=== PATIENT | female | born 1960 | race Caucasian/White ===

== ENCOUNTER 2017-06-10 13:02 | Emergency (ER) | payer OTHER ==
[~2017-06-10] VITALS: Ht 177.8 cm; Wt 103.5 kg
[2017-06-10 13:13] VITALS: TEMP 37.2; Ht 177.8 cm; Wt 103.5 kg
[2017-06-10] MEDS ORDERED: HYDROCODONE/HOMATROPINE SYRUP 5MG/1.5MG 5ML UDP PO STA (13:31)
[2017-06-10] MEDS ORDERED: SODIUM CHLORIDE 0.9% 1000ML 1,000 ML IV STA (13:31)
[2017-06-10] MEDS ORDERED: BENZONATATE 100MG CAP PO ONE (13:45)
[2017-06-10 13:57] LABS: BASO % 0.7 %; BASO ABS # 0.04 K/uL (0-0.2); COMPLETE YES; EOS % 4.2 %; HEMATOCRIT 39.6 % (37-47); IG% 0.2 %; LYMPH % 21.7 %; LYMPH ABS # 1.33 K/uL (1.2-3.4); MEAN CELL VOLUME 86.7 fL (80-100); MEAN CORPUSCULAR HEMOGLOBIN 28.9 pg (25-34); MEAN CORPUSCULAR HGB CONC 33.3 g/dl (32-36); MEAN PLATELET VOLUME 9.3 fL (7.4-10.4); NEUT % 66.2 %; PLATELET COUNT 258 K/uL (130-400); RED BLOOD COUNT 4.57 M/uL (4.2-5.4); WHITE BLOOD COUNT 6.12 K/uL (4.8-10.8)
[2017-06-10 14:13] LABS: BUN/CREATININE RATIO 13.3 (10-20); CALCIUM 9.2 mg/dl (8.5-10.1); CREATININE 0.75 mg/dl (0.60-1.20); POTASSIUM 3.8 mmol/L (3.5-5.1)
--- NOTE | 2017-06-10 14:20 | DIAGNOSTIC IMAGING REPORT ---
RIGHT RIBS UNILATERAL WITH PA CHEST CLINICAL HISTORY: Right rib pain. Cough. COMPARISON STUDY: None FINDINGS: The erect chest reveals no pneumothorax. There are right lower lobe airspace opacities suspicious for a pneumonia. Films subsequent to treatment are recommended in follow-up. There is a calcified left lower lobe granuloma. No right-sided rib fractures are visualized. IMPRESSION: 1. No evidence of pneumothorax. No right-sided rib fractures identified 2. Right lower lobe airspace opacities consistent with pneumonia. Films subsequent to treatment are recommended in follow-up Electronically signed by: Ulisses Zhong M.D. 06/10/2017 2:19 PM Dictated Date/Time: 06/10/2017 2:17 PM
[2017-06-10] MEDS ORDERED: LEVAQUIN 750MG / 150ML D5W IV STA (14:32)
[2017-06-10] MEDS ORDERED: BENZ100C18 PO (14:41)
[2017-06-10] MEDS ORDERED: LEVO1TAB35 PO (14:41)
[2017-06-10] MEDS ORDERED: LEVOFLOXACIN 250 MG TAB ONE (14:58)
[2017-06-10 15:03] VITALS: BP 143/73; PULSE 74; O2SAT 94
--- NOTE | 2017-06-10 19:03 | EMERGENCY ROOM VISIT NOTE ---
History Report prepared by Floydibmarcie: Cecil Chris Under the Supervision of: Dr. Daniel Park D.O. First contact with patient: 13:17 Chief Complaint: COUGH Stated Complaint: SEVERE COUGH WITH PAIN, TINGLING NUMBNESS IN ARMS Nursing Triage Summary: cough "Im coughing so hard I think I cracked a rib on right side" yellow sputum unknown fever bilateral arm numbness bilateral ear swelling History of Present Illness The patient is a 57 year old female who presents to the Emergency Room with complaints of persistent coughing beginning a week ago. She also complains of bilateral ear pressure. The patient states that her cough initially produced a green sputum, but is now producing a yellow sputum. She states that she had a sore throat prior to her cough which has since resolved. She also complains of chest pain feels that she may have cracked a rib on the right side from coughing. The patient states that her chest pain began suddenly while coughing, and is worsened with laying down. She states that she experienced an episode of numbness and tingling in her arms yesterday after coughing. She states that her hand went into a locked position briefly after the tingling occurred. Pt denies headache, change in vision, fevers, shortness of breath, nausea, vomiting, diarrhea, pain with urination, and melena. Source of History: patient Onset: 1 week ago Quality: other (cough) Timing: other (persistent) Associated Symptoms: + chest pain (right side after coughing), No fevers, No headache, No SOB, No nausea, No vomiting, No diarrhea, No urinary symptoms Note: The patient also complains of bilateral ear pressure and an episode of bilateral arm numbness and tingling followed by a hand spasm occurring yesterday. Review of Systems See HPI for pertinent positives & negatives. A total of 10 systems reviewed and were otherwise negative. Past Medical & Surgical Medical Problems: (1) No Known Active Medical Problems (2) Sepsis Surgical Problems: (1) H/O thyroidectomy (2) S/P cholecystectomy Family History No pertinent family history stated. Social History Smoking Status: Former Smoker Housing Status: lives with family Occupation Status: employed Current/Historical Medications Scheduled Benzonatate (Tessalon Perles), 100 MG PO TID Levofloxacin (Levaquin), 750 MG PO QD@08 Allergies Coded Allergies: Penicillins (Unverified Allergy, Unknown, "BLACKED OUT", 06/10/17) Physical Exam Vital Signs Date Time Temp Pulse Resp B/P (MAP) Pulse Ox O2 Delivery O2 Flow Rate FiO2 06/10/17 15:03 74 18 143/73 94 Room Air 06/10/17 14:40 74 139/76 97 Room Air 06/10/17 13:13 37.2 89 20 157/71 92 Room Air Physical Exam GENERAL: Sitting up on edge of bed, talking in full sentences, dry cough EYE EXAM: normal conjunctiva. OROPHARYNX: no exudate, no erythema, lips, buccal mucosa, and tongue normal and mucous membranes are moist NECK: supple, no nuchal rigidity, no adenopathy, non-tender LUNGS: Clear to auscultation. Normal chest wall mechanics HEART: no murmurs, S1 normal and S2 normal CHEST: acute reproducible right chest wall tenderness ABDOMEN: abdomen soft, non-tender, normo-active bowel sounds, no masses, no rebound or guarding. BACK: Back is symmetrical on inspection and there is no deformity, no midline tenderness, no CVA tenderness. SKIN: no rashes and no bruising UPPER EXTREMITIES: upper extremities are grossly normal. LOWER EXTREMITIES: No pitting edema. NEURO EXAM: Normal sensorium, cranial nerves II-XII grossly intact, normal speech, no gross weakness of arms, no gross weakness of legs. Medical Decision & Procedures ER Provider Diagnostic Interpretation: Radiology results as stated below per my review and the radiologist's interpretation: RIGHT RIBS UNILATERAL WITH PA CHEST FINDINGS: The erect chest reveals no pneumothorax. There are right lower lobe airspace opacities suspicious for a pneumonia. Films subsequent to treatment are recommended in follow-up. There is a calcified left lower lobe granuloma. No right-sided rib fractures are visualized. IMPRESSION: 1. No evidence of pneumothorax. No right-sided rib fractures identified 2. Right lower lobe airspace opacities consistent with pneumonia. Films subsequent to treatment are recommended in follow-up Electronically signed by: Ulisses Zhong M.D. Laboratory Results 06/10/17 13:40 Red Blood Count 4.57, Mean Corpuscular Volume 86.7, Mean Corpuscular Hemoglobin 28.9, Mean Corpuscular Hemoglobin Concent 33.3, Mean Platelet Volume 9.3, Neutrophils (%) (Auto) 66.2, Lymphocytes (%) (Auto) 21.7, Monocytes (%) (Auto) 7.0, Eosinophils (%) (Auto) 4.2, Basophils (%) (Auto) 0.7, Neutrophils # (Auto) 4.05, Lymphocytes # (Auto) 1.33, Monocytes # (Auto) 0.43, Eosinophils # (Auto) 0.26, Basophils # (Auto) 0.04 06/10/17 13:40 Test 06/10/17 13:40 White Blood Count 6.12 K/uL (4.8-10.8) Red Blood Count 4.57 M/uL (4.2-5.4) Hemoglobin 13.2 g/dL (12.0-16.0) Hematocrit 39.6 % (37-47) Mean Corpuscular Volume 86.7 fL (80-100) Mean Corpuscular Hemoglobin 28.9 pg (25-34) Mean Corpuscular Hemoglobin Concent 33.3 g/dl (32-36) Platelet Count 258 K/uL (130-400) Mean Platelet Volume 9.3 fL (7.4-10.4) Neutrophils (%) (Auto) 66.2 % Lymphocytes (%) (Auto) 21.7 % Monocytes (%) (Auto) 7.0 % Eosinophils (%) (Auto) 4.2 % Basophils (%) (Auto) 0.7 % Neutrophils # (Auto) 4.05 K/uL (1.4-6.5) Lymphocytes # (Auto) 1.33 K/uL (1.2-3.4) Monocytes # (Auto) 0.43 K/uL (0.11-0.59) Eosinophils # (Auto) 0.26 K/uL (0-0.5) Basophils # (Auto) 0.04 K/uL (0-0.2) RDW Standard Deviation 42.6 fL (36.4-46.3) RDW Coefficient of Variation 13.3 % (11.5-14.5) Immature Granulocyte % (Auto) 0.2 % Immature Granulocyte # (Auto) 0.01 K/uL (0.00-0.02) Anion Gap 9.0 mmol/L (3-11) Est Creatinine Clear Calc Drug Dose 105.2 ml/min Estimated GFR () 101.1 Estimated GFR (Non- 87.2 BUN/Creatinine Ratio 13.3 (10-20) Calcium Level 9.2 mg/dl (8.5-10.1) Laboratory results per my review. Medications Administered Medications (Trade) Dose Ordered Sig/Kiera Route Start Time Stop Time Status Last Admin Dose Admin Hydrocodone Bit/ Homatropine Methylb (Hycodan Syrup) 5 ml NOW STAT PO 06/10/17 13:31 06/10/17 13:33 DC 06/10/17 13:52 5 ML Benzonatate (Tessalon Perles Cap) 100 mg NOW ONCE PO 06/10/17 13:45 06/10/17 13:46 DC 06/10/17 13:52 100 MG Sodium Chloride 1,000 ml @ 999 mls/hr Q1H1M STAT IV 06/10/17 13:31 06/10/17 14:31 DC 06/10/17 13:53 999 MLS/HR Levofloxacin (Levaquin Tab) 750 mg STK-MED ONCE .ROUTE 06/10/17 14:58 06/10/17 14:59 DC 06/10/17 15:03 750 MG ECG Indication: chest pain Rate (beats per minute): 80 Rhythm: sinus rhythm Findings: no ectopy, other (Normal axis) ED Course ED COURSE: Vital signs were reviewed and showed hypertension. The patients medical record was reviewed The above diagnostic studies were performed and reviewed. ED treatments and interventions as stated above. 1323: The patient was evaluated in room A10. A complete history and physical examination was performed. 1331: Ordered Sodium Chloride 1000 ml @ 999 mls/hr IV, Hycodan Syrup 5 mL PO. 1345: Ordered Tessalon Perles Cap 100 mg PO. 1432: Ordered Levaquin / D5W 750 mg PO. 1438: Upon reevaluation, the patient is resting comfortably. I discussed my findings with the patient and she understands and agrees with the treatment plan. Based on the patients age, coexisting illnesses, exam and lab findings the decision to treat as an outpatient was made. The patient remained stable while under my care. The patient appeared well at the time of discharge. Medical Decision Differential diagnoses includes but is not limited to acute coronary syndrome, myocardial infarction, pericarditis, pulmonary embolus, aortic dissection, pneumonia, pneumothorax, musculoskeletal, shingles, esophageal. Patient is a 57-year-old since the ER for cough associated with runny nose and sore throat which has been present for the past week. She notes her sputum has turned from green to yellow. She has been feeling more tired. She does admit to a pleuritic pain on the right which has started 2 days ago following a severe coughing fit. No fevers. Vitals are unremarkable. Labs including CBC and BMP were unremarkable. Chest x-ray supports a pneumonia which consistent with her symptoms of an upper respiratory infection. On exam she does have reproducible anterior chest wall pain which I favors musculoskeletal second very to coughing. Patient was given a dose of Levaquin and discharged follow- up with her PCP along with Molly Eubanks. She was instructed not to drive, work, operate heavy machinery for the remainder of the day. Discussed with Pt concerning signs and symptoms to watch out for. Pt was instructed to follow up with their PCP and discussed with the patient their option to return to the ED at anytime for persistent or worsening symptoms. The appropriate anticipatory guidance and out-patient management, including indications for return to the emergency department, were explained at length to the patient and understood. Medication Reconcilliation Current Medication List: was personally reviewed by me Blood Pressure Screening Patient's blood pressure: Elevated blood pressure Blood pressure disposition: Elevated BP felt to be situational Impression Primary Impression: Pneumonia Scribe Attestation The scribe's documentation has been prepared under my direction and personally reviewed by me in its entirety. I confirm that the note above accurately reflects all work, treatment, procedures, and medical decision making performed by me. Departure Information Dispostion Home / Self-Care Prescriptions Levofloxacin (Levaquin) 750 Mg Tab 750 MG PO QD@08, #9 TAB Prov: Daniel Park, DO 06/10/17 Benzonatate (TESSALON PERLES) 100 Mg Cap 100 MG PO TID, #30 CAP Prov: Daniel Park, DO 06/10/17 Referrals No Doctor, Assigned (PCP) Forms HOME CARE DOCUMENTATION FORM, IMPORTANT VISIT INFORMATION Patient Instructions My [facility], Pneumonia (Bacterial) - [facility] Additional Instructions Please follow up with your primary care doctor or if you are a student, [facility] with in the next 24 hours. Any worsening of your symptoms, please return to the ED immediately. This includes any fevers greater than 100.4, worsening pain, chest pain, shortness breath, persistent nausea, vomiting, unable to eat or drink, or any other concerning signs or symptoms from your standpoint. You were given medications during this visit that will inhibit your ability to drive, operate machinery and work. Please do NOT drive, operate machinery, drink alcohol or work for the next 12hrs. You were found to have a blood pressure greater than 120 systolic over 90 diastolic. Due to the new Medicare guidelines, we are now recommending that you follow up with your primary care doctor in regards to this elevated blood pressure. Problem Qualifiers Primary Impression: Pneumonia Pneumonia type: due to unspecified organism Laterality: unspecified laterality Lung location: unspecified part of lung Qualified Codes: J18.9 - Pneumonia, unspecified organism
[2017-07-03] MEDS ORDERED: CYNI1000 IM (10:05)
[2017-07-03] MEDS ORDERED: ASPEC81 PO (10:05)
== END 2017-06-10 15:17 | disposition home or self-care (01) ==
LOC: C.EDB 13:04 → C.EDA 15:17
DX: J18.9 Pneumonia, unspecified organism (principal); Z87.891 Personal history of nicotine dependence

== ENCOUNTER 2017-07-01 10:54 | Emergency (ER) | payer OTHER ==
[~2017-07-01] VITALS: Ht 177.8 cm; Wt 101.6 kg
[~2017-07-01 10:54] MED LIST: LEVO1TAB35 PO
[2017-07-01] MEDS ORDERED: SODIUM CHLORIDE 0.9% 1000ML 1,000 ML IV SCH (11:07)
[2017-07-01 11:29] LABS: MEAN CORPUSCULAR HGB CONC 33.4 g/dl (32-36); MEAN PLATELET VOLUME 9.7 fL (7.4-10.4); PLATELET COUNT 257 K/uL (130-400)
--- NOTE | 2017-07-01 11:41 | DIAGNOSTIC IMAGING REPORT ---
HEAD CT NONCONTRAST CT DOSE: 537.48 mGy.cm HISTORY: Stroke symptoms. Dizziness. TECHNIQUE: Multiaxial CT images of the head were performed without the use of intravenous contrast. Automated exposure control was utilized for this study. A dose lowering technique was utilized adhering to the principles of ALARA. Comparison: None. Findings: The paranasal sinuses and mastoid air cells are clear. The calvarium and skull base are intact. There is no mass, hematoma, midline shift, acute infarct. White matter hypodensity is nonspecific but suggestive of microvascular ischemic change. The ventricles and sulci demonstrate mild age-related involutional changes. Impression: No acute intracranial abnormality. Electronically signed by: Ki Green M.D. 07/01/2017 11:40 AM Dictated Date/Time: 07/01/2017 11:38 AM
[2017-07-01 11:48] LABS: URINE APPEARANCE CLEAR (CLEAR); URINE BILIRUBIN NEG (NEG); URINE COLOR YELLOW; URINE NITRITE NEG (NEG); URINE PH 6.5 (4.5-7.5); URINE SPECIFIC GRAVITY 1.013 (1.000-1.030); UROBILINOGEN NEG (NEG); ZZUR CULT IF INDIC CLEAN CATCH NO
--- NOTE | 2017-07-01 11:48 | EMERGENCY ROOM VISIT NOTE ---
History Report prepared by Sandi: Toña Lopez Under the Supervision of: Dr. Sharon Epps M.D. First contact with patient: 11:05 Chief Complaint: STROKE SYMPTOMS Stated Complaint: SWELLING IN LEGS, CALF IF HARD, DIZZY, VISION PROB History of Present Illness The patient is a 57 year old female who presents to the Emergency Room with complaints of persistent stroke symptoms that began around 0800 this morning. The patient states that this morning she woke up out of bed at 0800 and dropped her phone. She states that she bent over to flower picker her phone and then her vision blurred out. The patient states that she has had difficulty ambulating and notes that she lost her urine while walking to the bathroom, noting that she could not make it to the bathroom in time. She denies any recent fall or head trauma. The patient's daughter states that the patient's speech pattern appears off. 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 She states that her left leg is worse than her right. The patient denies any history of a prior stroke. She states that she stopped smoking one year ago. The patient denies any recent illnesses. Source of History: patient Onset: around 0800 this morning Position: other (global) Quality: other (stroke symptoms) Timing: other (persistent) Note: Associated Symptoms: vision blurred out, difficulty ambulating, bilateral leg swelling Review of Systems See HPI for pertinent positives & negatives. A total of 10 systems reviewed and were otherwise negative. Past Medical & Surgical Medical Problems: (1) No Known Active Medical Problems (2) Pre-syncope (3) Sepsis Surgical Problems: (1) H/O thyroidectomy (2) S/P cholecystectomy Family History Diabetes mellitus Gallbladder disease Heart disease Hypertension Lung disease Seizures Social History Smoking Status: Former Smoker Smokeless Tobacco Use: No Alcohol Use: occasionally Marital Status: Housing Status: lives with family Occupation Status: employed Current/Historical Medications No Active Prescriptions or Reported Meds Allergies Coded Allergies: Penicillins (Unverified Allergy, Unknown, "BLACKED OUT", 07/01/17) Physical Exam Vital Signs Date Time Temp Pulse Resp B/P (MAP) Pulse Ox O2 Delivery O2 Flow Rate FiO2 07/01/17 13:13 96 Room Air 07/01/17 12:43 54 20 152/89 96 Room Air 07/01/17 11:41 53 133/69 97 Room Air 07/01/17 11:32 54 07/01/17 10:59 36.7 66 18 163/87 97 Room Air Physical Exam Vital signs reviewed. General: Well-appearing female, in no significant distress. HEENT: No scleral icterus, PERRLA, neck supple. Atraumatic. Cardiovascular: Regular rate and rhythm, no extra sounds. Pulmonary: Clear to auscultation bilaterally, normal work of breathing. Abdomen: Soft, nontender, nondistended, positive bowel sounds. Musculoskeletal: Atraumatic, no peripheral edema. Neurologic: Patient awake alert and oriented x 3, cerebellar exam intact with bilateral finger to nose, negative pronator drift, equal strength in bilateral upper extremities, questionable mild weakness of the left bicep muscle, equal strength of lower extremities. Cranial nerves 2 through 12 grossly intact. Skin: Warm, dry, no rash Medical Decision & Procedures ER Provider Diagnostic Interpretation: CT results as stated below per my review and radiologist interpretation: HEAD CT NONCONTRAST CT DOSE: 537.48 mGy.cm HISTORY: Stroke symptoms. Dizziness. TECHNIQUE: Multiaxial CT images of the head were performed without the use of intravenous contrast. Automated exposure control was utilized for this study. A dose lowering technique was utilized adhering to the principles of ALARA. Comparison: None. Findings: The paranasal sinuses and mastoid air cells are clear. The calvarium and skull base are intact. There is no mass, hematoma, midline shift, acute infarct. White matter hypodensity is nonspecific but suggestive of microvascular ischemic change. The ventricles and sulci demonstrate mild age-related involutional changes. Impression: No acute intracranial abnormality. Electronically signed by: Ki Green M.D. 07/01/2017 11:40 AM Dictated Date/Time: 07/01/2017 11:38 AM Laboratory Results Test 07/01/17 11:10 07/01/17 11:25 07/01/17 11:26 07/01/17 11:27 Prothrombin Time 10.1 SECONDS (9.0-12.0) Prothromb Time International Ratio 0.9 (0.9-1.1) Activated Partial Thromboplast Time 32.0 SECONDS (21.0-31.0) Partial Thromboplastin Ratio 1.2 Estimated Average Glucose 117 mg/dl Hemoglobin A1c 5.7 % (4.5-5.6) Total Creatine Kinase 58 U/L (26-192) Creatine Kinase MB < 0.5 ng/ml (0.5-3.6) Creatine Kinase MB Ratio (0-3.0) Thyroid Stimulating Hormone (TSH) 1.920 uIu/ml (0.300-4.500) Chemistry Specimen Hemolysis Bedside Glucose 113 mg/dl (70-90) Urine Color YELLOW Urine Appearance CLEAR (CLEAR) Urine pH 6.5 (4.5-7.5) Urine Specific [place] 1.013 (1.000-1.030) Urine Protein NEG (NEG) Urine Glucose (UA) NEG (NEG) Urine Ketones NEG (NEG) Urine Occult Blood NEG (NEG) Urine Nitrite NEG (NEG) Urine Bilirubin NEG (NEG) Urine Urobilinogen NEG (NEG) Urine Leukocyte Esterase NEG (NEG) Bedside Prothrombin Time INR 1.0 (0.9-1.1) Laboratory results per my review. Medications Administered Medications (Trade) Dose Ordered Sig/Kiera Route Start Time Stop Time Status Last Admin Dose Admin Sodium Chloride 1,000 ml @ 50 mls/hr Q20H IV 07/01/17 11:07 07/01/17 15:54 DC 07/01/17 11:45 50 MLS/HR Ondansetron HCl (Zofran Inj) 4 mg NOW STAT IV 07/01/17 12:55 07/01/17 12:56 DC 07/01/17 13:03 4 MG ECG Indication: other (stroke symptoms) Rate (beats per minute): 47 Rhythm: sinus bradycardia Findings: no acute ischemic change, no ectopy ED Course 1105: Past medical records reviewed. The patient was evaluated in room C4. A complete history and physical examination was performed. 1107: Ordered Sodium Chloride 1000 ml @ 50 mls/hr IV. 1255: Ordered Zofran Inj 4 mg IV. 1300: I discussed the patients case with JOSUE Shin. She is going to evaluate the patient for further treatment. Medical Decision Differential diagnosis: Etiologies such as metabolic, infection, hypo/hyperglycemia, electrolyte abnormalities, cardiac sources, intracerebral event, toxicologic, neurologic, as well as others were entertained. This patient was evaluated and appeared to be in no significant distress. IV access was obtained and laboratory work was drawn. Patient was placed on the property assessment monitor and found to be in a sinus bradycardia. Chest x-ray was obtained and is negative for infiltrate or failure. Laboratory work is negative. Patient was given IV normal saline solution and IV Zofran for her nausea. Physical examination is fairly unrevealing. CT scan of the head was performed and is negative for acute intracranial abnormality. Given the patient 's symptoms this morning and change in speech patterns, according to the family , the patient will be evaluated by the hospitalist service for further management. Medication Reconcilliation Current Medication List: was personally reviewed by me Blood Pressure Screening Patient's blood pressure: Elevated blood pressure The patient was referred to the hospitalist. Consults Time Called: 1242 Consulting Physician: JOSUE Shin Returned Call: 1300 I discussed the patients case with JOSUE Shin. She is going to evaluate the patient for further treatment. Impression Primary Impression: Stroke Scribe Attestation The scribe's documentation has been prepared under my direction and personally reviewed by me in its entirety. I confirm that the note above accurately reflects all work, treatment, procedures, and medical decision making performed by me. Departure Information Dispostion Being Evaluated By Hospitalist Prescriptions No Active Prescriptions or Reported Meds Referrals No Doctor, Assigned (PCP)
[2017-07-01 11:50] LABS: MANUAL MICROSCOPIC REQUIRED? NO; REVIEW REQ? NO
[2017-07-01 11:50] LABS: HEMATOCRIT 42.5 % (37-47); MEAN CELL VOLUME 86.2 fL (80-100); MEAN CORPUSCULAR HEMOGLOBIN 28.8 pg (25-34); RED BLOOD COUNT 4.93 M/uL (4.2-5.4); WHITE BLOOD COUNT 6.25 K/uL (4.8-10.8)
[2017-07-01 11:51] LABS: BASO % 0.5 %; BASO ABS # 0.03 K/uL (0-0.2); COMPLETE YES; EOS % 3.2 %; IG% 0.2 %; INR 0.9 (0.9-1.1); LYMPH % 28.3 %; LYMPH ABS # 1.77 K/uL (1.2-3.4); MONO % 4.2 %; NEUT % 63.6 %; PARTIAL THROMBOPLASTIN RATIO 1.2; PROTHROMBIN TIME (PATIENT) 10.1 SECONDS (9.0-12.0)
[2017-07-01 11:57] LABS: BLOOD UREA NITROGEN 18 mg/dl (7-18); BUN/CREATININE RATIO 19.5 (10-20); CARBON DIOXIDE 28 mmol/L (21-32); CHLORIDE 104 mmol/L (98-107); CREATININE 0.92 mg/dl (0.60-1.20); GLUCOSE 90 mg/dl (70-99); POTASSIUM 4.3 mmol/L (3.5-5.1); SODIUM 140 mmol/L (136-145)
[2017-07-01] MEDS ORDERED: ONDANSETRON INJ 2 MG/ML 2 ML VIAL IV STA (12:55)
[2017-07-01 13:13] VITALS: O2SAT 96; Ht 177.8 cm; Wt 101.6 kg
[2017-07-01] MEDS ORDERED: ONDANSETRON INJ 2 MG/ML 2 ML VIAL IV PRN (13:45)
[2017-07-01] MEDS ORDERED: MAGNESIUM HYDROXIDE SUSP 30 ML UDC PO PRN (13:45)
[2017-07-01] MEDS ORDERED: PHARMACIST DISCHARGE MED REC CONSULT PRN (13:45)
[2017-07-01] MEDS ORDERED: ACETAMINOPHEN 325 MG TAB PO PRN (13:45)
[2017-07-01] MEDS ORDERED: IV FLUIDS COMPLETED PRN (14:00)
--- NOTE | 2017-07-01 14:10 | History and Physical ---
History & Physical Date & Time of Service: Jul 01, 2017 at 13:46 Chief Complaint: Swelling In Legs, Calf If Hard, Dizzy, Vision Prob Primary Care Physician: No Doctor, Assigned History of Present Illness Source: patient, family 57 y/o F who was brought to the ED by her family for concerns of stroke-like sx. Pt states she was dx with PNA in the ED at [facility] about 2 weeks ago. She was prescribed levaquin for 9 days, which she has completed. She states she has not really felt well since this dx though. Upon further reflection, she states that she has really not felt well since she moved her from [place] at the end of April. She states that in general she has had no stamina or energy. She has felt weak and fatigued, which she attributed to a change in work. 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 She has developed LE swelling R>L in the last 2 weeks and she has R sided calf pain since that time as well. She has also been having joint pain in many different joints. She has been having UE n/t for about the last year. Last night, pt noted that she could not read a magazine, even though she had on her non-prescription reading glasses, which is unusual for her. She went to bed. She was supposed to work this AM and when her alarm went off, she reached for her phone but could not hold onto it. Her vision was blurry and she felt very disoriented. She was lightheaded and almost passed out. She had a very difficult time walking and felt like her R LE could not support her. She states that she "staggered" to the door and on the way to the bathroom she was incontinent of urine. She states that her sx started to clear, so she continued to get ready for work, however her vision became blurry again and she was again disoriented. She called her daughter (who lives upstairs from pt) and they came to the ED. Upon arrival, pt was unable to communicate to ED staff. Daughter states that she was very confused and could not recall the date , year, where she works, etc. She asked questions that did not make sense and her speech was slurred. Daughter feels that this has mostly resolved. Pt states she no longer feels lightheaded or disoriented, but her vision is still somewhat blurry and she is having R LE pain and joint pain. "I just don't feel right.". Pt denies fever, SOB, chest pain, abd pain, n/v/c/d. While pt is not currently SOB, she does state that she has been having difficulty on occasion with the stairs to her daughters part of the house. Pt has been under a lot of stress lately. She just moved here from [place] to live with her daughter and has changed jobs. Prior to moving here, pt states that she was very active with hiking and fishing. "I was always outside. " Since she has moved here, she feels she just does not have the energy to do that type of activity any longer. She states she has pulled off "I can't tell you how many" ticks. She has gained weight. She quit smoking about 1 year ago and thought the weight gain was related to this since she has since developed a sweet tooth. Pt states she has not seen a doctor in many years "because I felt so good". 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 She also had cervical cancer and was initially recommended to have a hysterectomy, however she wanted to have children so this was managed with colposcopy with cryo and repeat PAPs Q3 months for over a year, then Q6 months, then yearly however she cannot tell me the last time she had one. Pt states she had not had a period in roughly 5 years. Past Medical/Surgical History Medical Problems: (1) Sepsis Status: Resolved Surgical Problems: (1) H/O thyroidectomy Status: Resolved (2) S/P cholecystectomy Status: Resolved MVP Family History Family history was reviewed; no changes noted. Social History Smoking Status: Former Smoker (quit x1 year) Smokeless Tobacco Use: No Alcohol Use: occasionally (last drink was over 6 months ago) Drug Use: none Marital Status: Occupational Status: employed Multi-Drug Resistant Organisms History of MDRO: No Allergies Coded Allergies: Penicillins (Unverified Allergy, Unknown, "BLACKED OUT", 07/01/17) Home Medications No Active Prescriptions or Reported Meds Review of Systems Pertinent positives and negatives reviewed in HPI--all others negative Physical Exam Vital Signs Date Time Temp Pulse Resp B/P (MAP) Pulse Ox O2 Delivery O2 Flow Rate FiO2 07/01/17 13:13 96 Room Air 07/01/17 12:43 54 20 152/89 96 Room Air 07/01/17 11:41 53 133/69 97 Room Air 07/01/17 11:32 54 07/01/17 10:59 36.7 66 18 163/87 97 Room Air General Appearance: WD/WN, no apparent distress Head: normocephalic, atraumatic Eyes: normal inspection, EOMI ENT: hearing grossly normal Neck: supple Respiratory/Chest: normal breath sounds, no respiratory distress Cardiovascular: regular rate, rhythm, no edema Abdomen/GI: non tender, soft Extremities/Musculoskelatal: no pedal edema, + calf tenderness (R sided) Neurologic/Psych: alert, normal mood/affect (but tearful at times), oriented x 3 Skin: normal color, warm/dry Diagnostics Laboratory Results Results Past 24 Hours Test 07/01/17 11:10 07/01/17 11:25 07/01/17 11:26 07/01/17 11:27 Range/Units White Blood Count 6.25 4.8-10.8 K/uL Red Blood Count 4.93 4.2-5.4 M/uL Hemoglobin 14.2 12.0-16.0 g/dL Hematocrit 42.5 37-47 % Mean Corpuscular Volume 86.2 80-100 fL Mean Corpuscular Hemoglobin 28.8 25-34 pg Mean Corpuscular Hemoglobin Concent 33.4 32-36 g/dl Platelet Count 257 130-400 K/uL Mean Platelet Volume 9.7 7.4-10.4 fL Neutrophils (%) (Auto) 63.6 % Lymphocytes (%) (Auto) 28.3 % Monocytes (%) (Auto) 4.2 % Eosinophils (%) (Auto) 3.2 % Basophils (%) (Auto) 0.5 % Neutrophils # (Auto) 3.98 1.4-6.5 K/uL Lymphocytes # (Auto) 1.77 1.2-3.4 K/uL Monocytes # (Auto) 0.26 0.11-0.59 K/uL Eosinophils # (Auto) 0.20 0-0.5 K/uL Basophils # (Auto) 0.03 0-0.2 K/uL RDW Standard Deviation 42.8 36.4-46.3 fL RDW Coefficient of Variation 13.6 11.5-14.5 % Immature Granulocyte % (Auto) 0.2 % Immature Granulocyte # (Auto) 0.01 0.00-0.02 K/uL Prothrombin Time 10.1 9.0-12.0 SECONDS Prothromb Time International Ratio 0.9 0.9-1.1 Activated Partial Thromboplast Time 32.0 21.0-31.0 SECONDS Partial Thromboplastin Ratio 1.2 Sodium Level 140 136-145 mmol/L Potassium Level 4.3 3.5-5.1 mmol/L Chloride Level 104 98-107 mmol/L Carbon Dioxide Level 28 21-32 mmol/L Anion Gap 8.0 3-11 mmol/L Blood Urea Nitrogen 18 7-18 mg/dl Creatinine 0.92 0.60-1.20 mg/dl Est Creatinine Clear Calc Drug Dose 85.5 ml/min Estimated GFR () 79.0 Estimated GFR (Non- 68.2 BUN/Creatinine Ratio 19.5 10-20 Random Glucose 90 70-99 mg/dl Calcium Level 9.0 8.5-10.1 mg/dl Total Creatine Kinase 58 26-192 U/L Creatine Kinase MB < 0.5 0.5-3.6 ng/ml Creatine Kinase MB Ratio 0-3.0 Troponin I < 0.015 0-0.045 ng/ml Chemistry Specimen Hemolysis Bedside Glucose 113 70-90 mg/dl Urine Color YELLOW Urine Appearance CLEAR CLEAR Urine pH 6.5 4.5-7.5 Urine Specific Perkins 1.013 1.000-1.030 Urine Protein NEG NEG Urine Glucose (UA) NEG NEG Urine Ketones NEG NEG Urine Occult Blood NEG NEG Urine Nitrite NEG NEG Urine Bilirubin NEG NEG Urine Urobilinogen NEG NEG Urine Leukocyte Esterase NEG NEG Bedside Prothrombin Time INR 1.0 0.9-1.1 Test 07/01/17 13:24 Range/Units Diagnostic Radiology CT head neg for acute Impression Assessment and Plan 57 y/o F who was admitted for observation for stroke like sx. Stroke like sx/pre-syncope: CVA seems less likely, however given pt's age and smoking hx this will need ruled out MRI, ECHO pending Lyme, TSH, B12, folate pending given UE n/t, LE swelling, joint pain, and other sx as noted LE US pending, if neg PE seems less likely however this could cause some of pt's sx CBC, PRP WNL Trop neg x1, serials pending CT head neg for acute Lipid panel, A1c pending Elevated BP: pt states she was told this was the case in the ED 2 weeks ago as well Monitor Hx of cervical ca: will need to set up for outpt PAP Less likely, but cannot fully rule out that this is not some sort of cancerous process Other: Full code. Pt is very clear that she does not want prolonged mechanical life support or tube feedings. Daughter is present and agrees Ambulation for DVT proph Reg diet Pt will need assistance from CM to set up with a PCP. She will also need set up for a screening c-scope as outpt Level of Care Telemetry Advanced Directives Existing Living Will: No Existing Power of Rfid Systems Engineer: No Resuscitation Status FULL RESUSCITATION VTE Prophylaxis VTE Risk Assessment Done? Y/N: Yes Risk Level: Low
[2017-07-01 15:49] LABS: LYME DISEASE AB IGG NEG (NEG); LYME DISEASE AB IGM NEG (NEG)
[2017-07-01 16:00] VITALS: BP 145/85; PULSE 61; TEMP 37.1; O2SAT 95
--- NOTE | 2017-07-01 18:03 | DIAGNOSTIC IMAGING REPORT ---
ORBIT RADIOGRAPHS 3 VIEWS HISTORY: pre-MRI screening. COMPARISON: None. FINDINGS: There are no radiopaque foreign bodies identified within the orbits. IMPRESSION: No radiopaque foreign bodies identified within the orbits. Electronically signed by: Nelson Joy M.D. 07/01/2017 6:01 PM Dictated Date/Time: 07/01/2017 6:01 PM
--- NOTE | 2017-07-01 19:26 | DIAGNOSTIC IMAGING REPORT ---
RIGHT LOWER EXTREMITY VENOUS DOPPLER CLINICAL HISTORY: Right lower extremity swelling. COMPARISON STUDY: No previous studies for comparison. TECHNIQUE: Sonography of the deep venous system of the right lower extremity was performed. Compression and augmentation were evaluated. FINDINGS: The right common femoral, superficial femoral and popliteal veins were compressible. Augmentation was normal. Flow was shown within the deep calf vessels. Note is made of a 7.6 x 1.6 x 2 cm complex elongated fluid collection of the medial aspect of the right calf. Note is made of a 3.1 x 0.7 x 1.7 cm complex collection along the posterior medial aspect the right knee. These 2 collections may communicate. IMPRESSION: 1. No evidence of deep venous thrombus within the right lower extremity. 2. Two complex fluid collections of the right calf and posteromedial aspect of the right knee which may communicate. These could reflect hematomas or a ruptured popliteal cyst. Electronically signed by: Nelson Joy M.D. 07/01/2017 7:24 PM Dictated Date/Time: 07/01/2017 7:22 PM
--- NOTE | 2017-07-01 19:34 | DIAGNOSTIC IMAGING REPORT ---
MRI OF THE BRAIN WITHOUT AND WITH IV CONTRAST CLINICAL HISTORY: Possible stroke. Dizziness. Visual disturbance. COMPARISON STUDY: Head CT July 01, 2017. TECHNIQUE: Utilizing a 1.5 Gina magnet and dedicated coil, multiplanar, multiecho imaging of the brain was performed pre and postcontrast administration. IV administration of 10.3 mL of Gadavist contrast was uneventful. FINDINGS: There are no areas of restricted diffusion. No acute intracranial hemorrhage, midline shift or mass effect is present. Basilar cisterns are patent. There are no extra axial collections. Flow-voids for the major intracranial vessels are present. There is no intracranial mass or pathologic enhancement. 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 This is of no clinical significance. There are numerous subcortical and periventricular white matter T2 hyperintense foci. Calvarial signal is normal. Orbits are unremarkable on this nondedicated exam. IMPRESSION: 1. No evidence of acute infarction. 2. No intracranial masses or pathologic enhancement. 3. Numerous white matter T2 hyperintense foci. These are nonspecific but statistically reflect small vessel disease although are greater than expected for age. The appearance is not typical for multiple sclerosis although other etiologies for demyelination could have this imaging appearance. Electronically signed by: Nelson Joy M.D. 07/01/2017 7:33 PM Dictated Date/Time: 07/01/2017 7:27 PM
[2017-07-01 19:53] VITALS: BP 118/71; PULSE 59; TEMP 37.1; O2SAT 95
[2017-07-02] VITALS: BP 116/76; PULSE 52; TEMP 37.2; O2SAT 97
[2017-07-02 03:47] LABS: BASO % 0.4 %; BASO ABS # 0.02 K/uL (0-0.2); COMPLETE YES; EOS % 5.4 %; HEMATOCRIT 38.3 % (37-47); LYMPH % 39.6 %; LYMPH ABS # 1.77 K/uL (1.2-3.4); MEAN CORPUSCULAR HEMOGLOBIN 28.6 pg (25-34); MEAN CORPUSCULAR HGB CONC 32.9 g/dl (32-36); MEAN PLATELET VOLUME 9.4 fL (7.4-10.4); MONO % 7.2 %; NEUT % 47.4 %; PLATELET COUNT 204 K/uL (130-400); WHITE BLOOD COUNT 4.47 K/uL (4.8-10.8)
[2017-07-02 04:00] VITALS: BP 119/65; PULSE 60; TEMP 36.5; O2SAT 96
[2017-07-02 04:04] LABS: BLOOD UREA NITROGEN 17 mg/dl (7-18); BUN/CREATININE RATIO 17.3 (10-20); CALCIUM 8.6 mg/dl (8.5-10.1); CARBON DIOXIDE 30 mmol/L (21-32); CHLORIDE 107 mmol/L (98-107); GLUCOSE 94 mg/dl (70-99); POTASSIUM 4.2 mmol/L (3.5-5.1); SODIUM 143 mmol/L (136-145)
[2017-07-02 04:09] LABS: CHOLESTEROL 194 mg/dl (0-200); CHOLESTEROL/HDL RATIO 3.3; HDL CHOLESTEROL 58 mg/dl; LDL CHOLESTEROL CALCULATED 105 mg/dl; TRIGLYCERIDES 156 mg/dl (0-150); VERY LOW DENSITY LIPOPROT CALC 31 mg/dl
[2017-07-02 06:48] LABS: ESTIMATED AVERAGE GLUCOSE 117 mg/dl; HA1C FLAG Normal (Normal)
[2017-07-02 08:29] VITALS: BP 106/62; PULSE 82; TEMP 36.7; O2SAT 96
[2017-07-02] MEDS: CYANOCOBALAMIN 1000 MCG/ML VIAL IM SCH (08:31)
--- NOTE | 2017-07-02 09:25 | Neurology Consultation ---
Neurology Consultation Date of Consultation: Jul 02, 2017. Attending Physician: Lindsey Beck DO Primary Care Physician: No Doctor, Assigned Reason for Consultation: Question of demyelinating disease on MRI History of Present Illness Source: patient, hospital records The patient is a 57-year-old female reports that she woke up yesterday morning feeling somewhat ill. She members having difficulty focusing her vision while staring up at the ceiling and recalls having some associated clumsiness or incoordination when attempting to turn off her alarm clock with the right hand. She admits that she has been having mild difficulty with clumsiness or weakness affecting the right arm and leg for the past 2 weeks but did not seek any specific medical evaluation for this issue. She complains of feeling generally weak and reports low energy. She reports that she was treated for pneumonia about 2 weeks ago and has recently changed her job. She is very concerned about her ability to start working again due to her persistent symptoms. The patient denies headache. She does complain of generalized muscle and joint pain which is been present for quite some time. I reviewed the images and radiologist's interpretation of the recently completed brain MRI. The study reveals a nonspecific pattern of increased T2/ FLAIR signal throughout the cerebral hemispheres, primarily subcortically located with a few periventricular hyperintensities as well. No perpendicularly oriented lesions to the lateral ventricles or "Buchanan's fingers. No abnormal post contrast enhancement. Electrocardiogram reveals sinus bradycardia, 47 bpm Labs, CBC normal, comprehensive metabolic panel unremarkable, TSH normal, vitamin B-12 level normal, cardiac enzymes normal, Lyme antibody screening unremarkable Past Medical/Surgical History Medical Problems: (1) Pneumonia Status: Acute (2) Stroke Status: Acute Family History The patient reports that both her mother and father had a history of stroke Social History Smokeless Tobacco Use: No Alcohol Use: occasionally (last drink was over 6 months ago) Drug Use: none Marital Status: Housing Status: lives with family Occupation Status: employed Allergies Coded Allergies: Penicillins (Unverified Allergy, Unknown, "BLACKED OUT", 07/01/17) Current Inpatient Medications Current Inpatient Medications Medications (Trade) Dose Ordered Sig/Kiera Route Start Time Stop Time Status Last Admin Dose Admin Miscellaneous Information (Pharmacist Discharge Med Rec Consult) 1 ea UD PRN N/A 07/01/17 13:45 07/31/17 13:44 Acetaminophen (Tylenol Tab) 650 mg Q4H PRN PO 07/01/17 13:45 07/31/17 13:44 Magnesium Hydroxide (Milk Of Magnesia Susp) 30 ml Q12H PRN PO 07/01/17 13:45 07/31/17 13:44 Ondansetron HCl (Zofran Inj) 4 mg Q6H PRN IV 07/01/17 13:45 07/31/17 13:44 Miscellaneous (Iv Fluids Completed) 1 ea PRN PRN N/A 07/01/17 14:00 07/01/18 13:59 Cyanocobalamin (Vitamin B-12 Inj) 1,000 mcg DAILY IM 07/02/17 09:00 07/06/17 09:01 07/02/17 08:31 1,000 MCG Review of Systems Constitutional: Patient denies fever or chills Eyes: No diplopia or vision loss ENT: Patient complains of dizziness but denies true vertigo, no hearing loss Cardiovascular: No chest pain or palpitations A full 10 point review of systems was obtained from this patient with pertinent positives and negatives described in the history of present illness and other pertinent negatives listed above. All remaining systems reviewed and are negative. Physical Exam Vital Signs (Past 24 Hrs): Date Time Temp Pulse Resp B/P (MAP) Pulse Ox O2 Delivery O2 Flow Rate FiO2 07/02/17 04:00 36.5 60 17 119/65 (83) 96 Room Air 07/02/17 04:00 Room Air 07/02/17 00:00 37.2 52 18 116/76 (89) 97 Room Air 07/02/17 00:00 Room Air 07/01/17 20:00 Room Air 07/01/17 19:53 37.1 59 12 118/71 (87) 95 Room Air 07/01/17 16:00 Room Air 07/01/17 16:00 37.1 61 16 145/85 (105) 95 Room Air 07/01/17 14:19 53 07/01/17 14:12 56 20 127/77 97 07/01/17 13:13 96 Room Air 07/01/17 12:43 54 20 152/89 96 Room Air 07/01/17 11:41 53 133/69 97 Room Air 07/01/17 11:32 54 07/01/17 10:59 36.7 66 18 163/87 97 Room Air The patient is an overweight elderly female. No acute distress. She is alert and oriented to person place and time. Recent and remote memory intact. Attention and concentration normal. Patient exhibits a normal spontaneous speech pattern. She is able to name objects and repeat phrases. She exhibits an age-appropriate fund of knowledge. Normal vocabulary. Visual del real full to confrontation. Visual acuity normal. Pupils equal round reactive to light and accommodation. Eye movements normal. No nystagmus. Facial sensation intact bilaterally. There is normal facial symmetry and strength. No facial droop. Hearing intact to finger rub bilaterally. Palate elevates to midline. Tongue protrusion midline. Shoulder shrug intact. Sensation intact to light touch, temperature, proprioception, and vibration in all 4 limbs. Deep tendon reflexes are intact and symmetrical for the arms and legs. Plantar responses downgoing bilaterally. There is no dysdiadochokinesia or dysmetria with finger to nose or heel to conrad bilaterally. Ophthalmoscopic examination reveals normal-appearing optic disks and posterior segments. No papilledema or hemorrhages. Carotid pulses normal bilaterally, no bruits to auscultation. Gait and station not tested due to safety concerns. Patient exhibits normal strength for the arms and legs proximally and distally. There are no signs of a hemiparesis. Muscle tone normal throughout. No atrophy. No abnormal movements appreciated. Laboratory Results Past 24 Hours: 07/02/17 03:38 Red Blood Count 4.40, Mean Corpuscular Volume 87.0, Mean Corpuscular Hemoglobin 28.6, Mean Corpuscular Hemoglobin Concent 32.9, Mean Platelet Volume 9.4, Neutrophils (%) (Auto) 47.4, Lymphocytes (%) (Auto) 39.6, Monocytes (%) (Auto) 7.2, Eosinophils (%) (Auto) 5.4, Basophils (%) (Auto) 0.4, Neutrophils # (Auto) 2.12, Lymphocytes # (Auto) 1.77, Monocytes # (Auto) 0.32, Eosinophils # (Auto) 0.24, Basophils # (Auto) 0.02 07/02/17 03:38 Test 07/01/17 11:10 07/01/17 11:25 07/01/17 11:26 07/01/17 11:27 Prothrombin Time 10.1 SECONDS (9.0-12.0) Prothromb Time International Ratio 0.9 (0.9-1.1) Activated Partial Thromboplast Time 32.0 SECONDS (21.0-31.0) Partial Thromboplastin Ratio 1.2 Estimated Average Glucose 117 mg/dl Hemoglobin A1c 5.7 % (4.5-5.6) Total Creatine Kinase 58 U/L (26-192) Creatine Kinase MB < 0.5 ng/ml (0.5-3.6) Creatine Kinase MB Ratio (0-3.0) Thyroid Stimulating Hormone (TSH) 1.920 uIu/ml (0.300-4.500) Chemistry Specimen Hemolysis Bedside Glucose 113 mg/dl (70-90) Urine Color YELLOW Urine Appearance CLEAR (CLEAR) Urine pH 6.5 (4.5-7.5) Urine Specific Struthers 1.013 (1.000-1.030) Urine Protein NEG (NEG) Urine Glucose (UA) NEG (NEG) Urine Ketones NEG (NEG) Urine Occult Blood NEG (NEG) Urine Nitrite NEG (NEG) Urine Bilirubin NEG (NEG) Urine Urobilinogen NEG (NEG) Urine Leukocyte Esterase NEG (NEG) Bedside Prothrombin Time INR 1.0 (0.9-1.1) Test 07/01/17 14:34 07/02/17 03:38 Vitamin B12 Level 366 pg/mL (211-911) Folate 15.16 ng/mL (>5.38) Lyme Disease IgG Antibody NEG (NEG) Lyme Disease IgM Antibody NEG (NEG) Hepatitis C Antibody Screen NEG (NEG) White Blood Count 4.47 K/uL (4.8-10.8) Red Blood Count 4.40 M/uL (4.2-5.4) Hemoglobin 12.6 g/dL (12.0-16.0) Hematocrit 38.3 % (37-47) Mean Corpuscular Volume 87.0 fL (80-100) Mean Corpuscular Hemoglobin 28.6 pg (25-34) Mean Corpuscular Hemoglobin Concent 32.9 g/dl (32-36) Platelet Count 204 K/uL (130-400) Mean Platelet Volume 9.4 fL (7.4-10.4) Neutrophils (%) (Auto) 47.4 % Lymphocytes (%) (Auto) 39.6 % Monocytes (%) (Auto) 7.2 % Eosinophils (%) (Auto) 5.4 % Basophils (%) (Auto) 0.4 % Neutrophils # (Auto) 2.12 K/uL (1.4-6.5) Lymphocytes # (Auto) 1.77 K/uL (1.2-3.4) Monocytes # (Auto) 0.32 K/uL (0.11-0.59) Eosinophils # (Auto) 0.24 K/uL (0-0.5) Basophils # (Auto) 0.02 K/uL (0-0.2) RDW Standard Deviation 43.5 fL (36.4-46.3) RDW Coefficient of Variation 13.6 % (11.5-14.5) Immature Granulocyte % (Auto) 0.0 % Immature Granulocyte # (Auto) 0.00 K/uL (0.00-0.02) Anion Gap 6.0 mmol/L (3-11) Est Creatinine Clear Calc Drug Dose 78.7 ml/min Estimated GFR () 71.4 Estimated GFR (Non- 61.6 BUN/Creatinine Ratio 17.3 (10-20) Calcium Level 8.6 mg/dl (8.5-10.1) Troponin I < 0.015 ng/ml (0-0.045) Triglycerides Level 156 mg/dl (0-150) Cholesterol Level 194 mg/dl (0-200) HDL Cholesterol 58 mg/dl LDL Cholesterol, Calculated 105 mg/dl VLDL Cholesterol, Calculated 31 mg/dl Cholesterol/HDL Ratio 3.3 Impression Nonspecific white matter hyperintensities on recently completed brain MRI. The overall pattern appears to be more suggestive of chronic cerebrovascular disease rather than multiple sclerosis as specifically questioned. This patient's clinical presentation is a bit nonspecific as well although TIA cannot be excluded. Plan I would recommend a carotid ultrasound as well as an MRA of the head and neck. If there is no medical contraindication, I think aspirin 81 mg per day would be reasonable. PT/OT consultations. I would not pursue CSF analysis at this time given the nonspecific character of her imaging and clinical presentation. The follow-up brain MRI should be obtained in 6 months to evaluate for any significant interval change. Please contact me if I may be of further assistance.
[2017-07-02 11:11] VITALS: BP 85/45; PULSE 71; TEMP 37.2; O2SAT 96
--- NOTE | 2017-07-02 11:33 | Medical Student: [facility] ---
Med Student Progress Note Date of Service Jul 02, 2017. Subjective Pt evaluation today including: conversation w/ patient, physical exam, chart review, lab review, review of studies Voiding: no voiding problems Patient examined laying in bed this morning. She reports feeling tired with aches all over her body. Her vision is still blurry. She is able to walk around the room and to the bathroom without issue. No problems swallowing or with speech. She denies fever, chest pain, shortness of breath, n/v/d, numbness/ tingling, calf pain. She has a sister with MS though she is unsure of the details of her diagnosis. No other complaints at this time. Review of Systems Constitutional: No fever, No chills Eyes: + worsening of vision, No diplopia ENT: No sore throat, No trouble swallowing Respiratory: No cough, No shortness of breath Cardiac: No chest pain, No palpitations Abdomen: No pain, No nausea, No vomiting, No diarrhea Musculoskeletal: + joint pain, + muscle pain, No calf pain Female : No dysuria, No incontinence Neurologic: No paralysis, No numbness/tingling Skin: No rash, No new/changing skin lesions Objective Vital Signs Date Time Temp Pulse Resp B/P (MAP) Pulse Ox O2 Delivery O2 Flow Rate FiO2 07/02/17 08:29 36.7 82 20 106/62 (77) 96 Room Air 07/02/17 08:00 Room Air 07/02/17 04:00 36.5 60 17 119/65 (83) 96 Room Air 07/02/17 04:00 Room Air 07/02/17 00:00 37.2 52 18 116/76 (89) 97 Room Air 07/02/17 00:00 Room Air 07/01/17 20:00 Room Air 07/01/17 19:53 37.1 59 12 118/71 (87) 95 Room Air 07/01/17 16:00 Room Air 07/01/17 16:00 37.1 61 16 145/85 (105) 95 Room Air 07/01/17 14:19 53 07/01/17 14:12 56 20 127/77 97 07/01/17 13:13 96 Room Air 07/01/17 12:43 54 20 152/89 96 Room Air 07/01/17 11:41 53 133/69 97 Room Air Physical Exam General Appearance: + mild distress, + obese Eyes: bilateral eyes normal inspection, bilateral eyes PERRL, bilateral eyes EOMI ENT: normal ENT inspection, pharynx normal Neck: supple, no adenopathy, no carotid bruits Respiratory/Chest: lungs clear, normal breath sounds, no respiratory distress Cardiovascular: regular rate, rhythm, no gallop, no murmur Abdomen: normal bowel sounds, non tender, soft Extremities: normal range of motion, no calf tenderness Neurologic/Psychiatric: package clerk II-XII nml as tested, alert, oriented x 3 Skin: normal color, warm/dry Comments: Strength BUE 5/5 throughout, BLE not tested patient in bed Sensation: BUE and BLE grossly intact to pinprick and light touch Reflexes: 2+ biceps, triceps, brachioradialis, patellar and Achilles reflexes not tested Laboratory Results Last 24 Hours Test 07/01/17 14:34 07/01/17 20:09 07/02/17 03:38 Vitamin B12 Level 366 pg/mL Folate 15.16 ng/mL Lyme Disease IgG Antibody NEG Lyme Disease IgM Antibody NEG Hepatitis C Antibody Screen NEG Troponin I < 0.015 ng/ml < 0.015 ng/ml White Blood Count 4.47 K/uL Red Blood Count 4.40 M/uL Hemoglobin 12.6 g/dL Hematocrit 38.3 % Mean Corpuscular Volume 87.0 fL Mean Corpuscular Hemoglobin 28.6 pg Mean Corpuscular Hemoglobin Concent 32.9 g/dl Platelet Count 204 K/uL Mean Platelet Volume 9.4 fL Neutrophils (%) (Auto) 47.4 % Lymphocytes (%) (Auto) 39.6 % Monocytes (%) (Auto) 7.2 % Eosinophils (%) (Auto) 5.4 % Basophils (%) (Auto) 0.4 % Neutrophils # (Auto) 2.12 K/uL Lymphocytes # (Auto) 1.77 K/uL Monocytes # (Auto) 0.32 K/uL Eosinophils # (Auto) 0.24 K/uL Basophils # (Auto) 0.02 K/uL RDW Standard Deviation 43.5 fL RDW Coefficient of Variation 13.6 % Immature Granulocyte % (Auto) 0.0 % Immature Granulocyte # (Auto) 0.00 K/uL Sodium Level 143 mmol/L Potassium Level 4.2 mmol/L Chloride Level 107 mmol/L Carbon Dioxide Level 30 mmol/L Anion Gap 6.0 mmol/L Blood Urea Nitrogen 17 mg/dl Creatinine 1.00 mg/dl Est Creatinine Clear Calc Drug Dose 78.7 ml/min Estimated GFR () 71.4 Estimated GFR (Non- 61.6 BUN/Creatinine Ratio 17.3 Random Glucose 94 mg/dl Calcium Level 8.6 mg/dl Triglycerides Level 156 mg/dl Cholesterol Level 194 mg/dl HDL Cholesterol 58 mg/dl LDL Cholesterol, Calculated 105 mg/dl VLDL Cholesterol, Calculated 31 mg/dl Cholesterol/HDL Ratio 3.3 Assessment and Plan Assessment and Plan: This is a 57yo female who was admitted for observation of stroke like symptoms. Workup has been generally unrevealing up to this point. CVA is unlikely given negative head CT and brain MRI. TIA cannot be excluded. Infectious causes such as Lyme and other tick-borne diseases (anaplasmosis, babesiosis, erlichiosis) are possible despite negative Lyme titer to date as the patient has frequent tick exposures. TSH and folate wnl. Low B12 level was found and treated but is an unlikely cause of all her symptoms. Atypical presentation of polymyositis or polymyalgia rheumatica are possible and ESR, CRP and creatinine kinase levels will be drawn to explore this. 1. Stroke-like symptoms/pre-syncope -MRI brain shows possible small vessel disease and signs of demyelination but MS less likely based on read -CT head negative -RLE Doppler negative for DVT -Lyme, TSH, folate wnl -low B12 level was found and treated with B12 injection -neurology consult completed with the following recommendations: MRA head, carotid US, ASA 81mg, repeat brain MRI in 6 months -lipid panel wnl, discussed lifestyle and diet modifications with the patient 2. RLE pain, improved from yesterday -RLE Doppler negative for DVT but positive for 2 fluid collections: hematoma vs popliteal cyst -will continue ot monitor 3. Diet -Regular diet 4. DVT prophylaxis -patient to ambulate as tolerated 5. Discharge planning -location: home -Date: 07/03/17 tentative Discharge planning: home Reviewed: Pt Seen/Exam by Me History See my note for details. Assessment/Plan 57 y/o F who was admitted for observation for stroke like sx. Stroke like sx/pre-syncope: Uncertain etiology, CVA seems less likely at this point MRI suggests small vessel disease that is increased for age, ?? demyelinating disease like MS although MS less likely based on read ECHO with EF 60-65% and no major structural issues noted Lyme, TSH, folate WNL B12 deficiency noted and this could explain UE n/t and fatigue, but not several other sx LE US neg for DVT making PE less likely CBC, PRP WNL Trop neg x3 CT head neg for acute Lipid panel with elevated TG, A1c with minimal elevation Given odd consternation of sx, will look at CRP, ESR, other tick born illness , MAUREEN panel Neuro c/s noted, planning for MRA head/neck which cannot be done until 7p due to contrast given yesterday, also added 81mg aspirin Pt will need f/u MRI in 6 months B12 deficiency: could explain n/t, fatigue, decreased stamina but seems likely likely to account for other sx Replace QD x5, then Qweek x4 and recheck as outpt Elevated BP: pt states she was told this was the case in the ED 2 weeks ago as well, however BP has been WNL today Monitor No hx of HTN LE pain: LE US neg for DVT, + for 2 complex fluid collections, hematoma vs popliteal cyst No longer with pain Can f/u with ortho or sports med as outpt if this returns Elevated TG, A1c: discussed dietary changes Lipid panel otherwise WNL BS are WNL also with A1c with minimal elevation at 5.7 Pt has had increased sweets over last year since d/c smoking and did discuss this with pt Hx of cervical ca: will need to set up for outpt PAP Less likely, but cannot fully rule out that this is not some sort of cancerous process Other: Full code. Pt is very clear that she does not want prolonged mechanical life support or tube feedings. Daughter is present and agrees Ambulation for DVT proph Reg diet Pt will need assistance from CM to set up with a PCP. She will also need set up for a screening c-scope as outpt
[2017-07-02 15:56] VITALS: BP 120/66; PULSE 63; TEMP 37; O2SAT 95
--- NOTE | 2017-07-02 16:05 | ECHOCARDIOGRAM REPORT ---
*NOTICE TO RECEIVING LIBERTARIAN AGENCY This information is strictly Confidential and protected under [place] law. [place] law prohibits you from making any further disclosure of this information unless further disclosure is expressly permitted by the written consent of the person to whom it pertains or is authorized by law. A general authorization for the release of medical or other information is not sufficient for this purpose. Hospital accepts no responsibility if the information is made available to any other person, INCLUDING THE PATIENT. Interpretation Summary * Name: BOSSMAN GUERRA Study Date: 07/01/2017 03:40 PM BP: 127/77 mmHg * Patient Location: [facility] HR: 53 * : 1960 (M/d/yyyy) Gender: Female Height: 70 in * Age: 57 yrs Ethnicity: [place] Weight: 227 lb * Ordering Physician: Lindsey Beck DO * Performed By: Alicia Hu RDCS * * Reason For Study: Presyncope * BSA: 2.2 m2 * Normal biventricular systolic function. * Normal chamber dimensions. * Mild pulmonic and tricuspid regurgitation. * Trace mitral regurgitation. Procedure Details * A complete two-dimensional transthoracic echocardiogram was performed (2D, M-mode, Doppler and color flow Doppler). Left Ventricle * The left ventricle is normal in size. * There is normal left ventricular wall thickness. * Ejection Fraction = 60-65%. * The left ventricular wall motion is normal. Right Ventricle * The right ventricle is normal in size and function. * The right ventricular systolic function is normal as assessed by tricuspid annular plane systolic excursion (TAPSE) (normal >1.5 cm). Atria * The left atrial size is normal. * Right atrial size is normal. * No ASD detected; PFO is not assessed. Mitral Valve * The mitral valve is normal. * There is no mitral valve stenosis. * There is trace mitral regurgitation. Tricuspid Valve * The tricuspid valve is normal. * There is no tricuspid stenosis. * There is mild tricuspid regurgitation. * Right ventricular systolic pressure is normal. Aortic Valve * The aortic valve is trileaflet. * The aortic valve opens well. * Aortic stenosis is absent. * No aortic regurgitation is present. Pulmonic Valve * The pulmonic valve is not well visualized. * There is no pulmonic valvular stenosis. * Mild pulmonic valvular regurgitation. Great Vessels * The aortic root is normal size. Pericardium/Pleural * There is no pericardial effusion. Great Vessels * Normal inferior vena cava diameter and respiratory variation suggests normal central venous pressure. MMode 2D Measurements and Calculations IVSd 0.76 cm LVIDd 4.6 cm LVIDs 3.1 cm LVPWd 0.88 cm IVS/LVPW 0.87 FS 33.6 % EDV(Teich) 99.1 ml ESV(Teich) 37.3 ml EF(Teich) 62.4 % EDV(cubed) 99.6 ml ESV(cubed) 29.1 ml EF(cubed) 70.7 % LV mass(C)d 123.2 grams LV mass(C)dI 55.9 grams/m\S\2 CO(Teich) 2.8 l/min CI(Teich) 1.3 l/min/m\S\2 SV(Teich) 61.8 ml SI(Teich) 28.1 ml/m\S\2 CO(cubed) 3.2 l/min CI(cubed) 1.5 l/min/m\S\2 SV(cubed) 70.4 ml SI(cubed) 32.0 ml/m\S\2 Ao root diam 3.0 cm Ao root area 7.1 cm\S\2 ACS 2.3 cm LA dimension 3.2 cm asc Aorta Diam 3.0 cm LA/Ao 1.1 LVOT diam 2.0 cm LVOT area 3.0 cm\S\2 LVAd ap4 30.8 cm\S\2 LVLd ap4 8.2 cm EDV(MOD-sp4) 96.0 ml LVAs ap4 15.9 cm\S\2 LVLs ap4 6.8 cm ESV(MOD-sp4) 32.7 ml EF(MOD-sp4) 65.9 % LVAd ap2 31.2 cm\S\2 LVLd ap2 8.7 cm EDV(MOD-sp2) 93.9 ml LVAs ap2 17.0 cm\S\2 LVLs ap2 7.3 cm ESV(MOD-sp2) 34.0 ml EF(MOD-sp2) 63.8 % CO(MOD-sp4) 2.9 l/min CI(MOD-sp4) 1.3 l/min/m\S\2 SV(MOD-sp4) 63.3 ml SI(MOD-sp4) 28.7 ml/m\S\2 CO(MOD-sp2) 2.8 l/min CI(MOD-sp2) 1.3 l/min/m\S\2 SV(MOD-sp2) 59.9 ml SI(MOD-sp2) 27.2 ml/m\S\2 Doppler Measurements and Calculations MV E max gin 77.1 cm/sec MV A max gin 64.0 cm/sec MV E/A 1.2 MV dec time 0.31 sec Ao V2 max 137.1 cm/sec Ao max PG 7.5 mmHg Ao max PG (full) 2.2 mmHg ALICIA(V,A) 2.5 cm\S\2 ALICIA(V,D) 2.5 cm\S\2 LV V1 max PG 5.3 mmHg LV V1 max 115.4 cm/sec PA V2 max 115.4 cm/sec PA max PG 5.3 mmHg PA acc slope 323.9 cm/sec\S\2 PA acc time 0.20 sec PI max gin 153.4 cm/sec PI max PG 9.4 mmHg PI dec slope 163.3 cm/sec\S\2 PI P1/2t 275.1 msec TR max gin 200.9 cm/sec PA pr(Accel) -11.32 mmHg
--- NOTE | 2017-07-02 16:46 | Progress Note ---
Subjective Date of Service: Jul 02, 2017. Subjective Pt evaluation today including: conversation w/ patient Pt is feeling somewhat improved today. She has been able to ambulate much better. No longer staggering. Her vision is still a bit blurry, but also improved. She notes that when she woke up this AM, she had a few seconds of repeated sx of yesterday AM--numbness and tingling and disoriented, but this resolved quickly this time. She mostly just feels greatly fatigued and has a lot of joint and body aches. Tolerated PO without an issue. R LE pain is no longer present and she feels that the calf is no longer hard, nor does it have the "lump" that was there yesterday. Pt denies fever, SOB, chest pain, abd pain, n/v/c/d. Pt also relates today that she has a sister with MS. Problem List Medical Problems: (1) Pneumonia Status: Acute (2) Stroke Status: Acute Review of Systems All Other Systems: Reviewed and Negative Objective Vital Signs Date Time Temp Pulse Resp B/P (MAP) Pulse Ox O2 Delivery O2 Flow Rate FiO2 07/02/17 16:00 Room Air 07/02/17 15:56 37.0 63 18 120/66 (84) 95 Room Air 07/02/17 12:00 Room Air 07/02/17 11:11 37.2 71 20 85/45 (58) 96 07/02/17 08:29 36.7 82 20 106/62 (77) 96 Room Air 07/02/17 08:00 Room Air 07/02/17 04:00 36.5 60 17 119/65 (83) 96 Room Air 07/02/17 04:00 Room Air 07/02/17 00:00 37.2 52 18 116/76 (89) 97 Room Air 07/02/17 00:00 Room Air 07/01/17 20:00 Room Air 07/01/17 19:53 37.1 59 12 118/71 (87) 95 Room Air Physical Exam Comments: General Appearance: WD/WN, no apparent distress Respiratory/Chest: normal breath sounds, no respiratory distress Cardiovascular: regular rate, rhythm, no edema Abdomen/GI: non tender, soft Extremities/Musculoskelatal: no pedal edema, + calf tenderness--completely resolved Neurologic/Psych: alert, normal mood/affect, oriented x 3 Skin: normal color, warm/dry Laboratory Results Last 24 Hours Test 07/01/17 20:09 07/02/17 03:38 07/02/17 16:28 Troponin I < 0.015 ng/ml < 0.015 ng/ml White Blood Count 4.47 K/uL Red Blood Count 4.40 M/uL Hemoglobin 12.6 g/dL Hematocrit 38.3 % Mean Corpuscular Volume 87.0 fL Mean Corpuscular Hemoglobin 28.6 pg Mean Corpuscular Hemoglobin Concent 32.9 g/dl Platelet Count 204 K/uL Mean Platelet Volume 9.4 fL Neutrophils (%) (Auto) 47.4 % Lymphocytes (%) (Auto) 39.6 % Monocytes (%) (Auto) 7.2 % Eosinophils (%) (Auto) 5.4 % Basophils (%) (Auto) 0.4 % Neutrophils # (Auto) 2.12 K/uL Lymphocytes # (Auto) 1.77 K/uL Monocytes # (Auto) 0.32 K/uL Eosinophils # (Auto) 0.24 K/uL Basophils # (Auto) 0.02 K/uL RDW Standard Deviation 43.5 fL RDW Coefficient of Variation 13.6 % Immature Granulocyte % (Auto) 0.0 % Immature Granulocyte # (Auto) 0.00 K/uL Sodium Level 143 mmol/L Potassium Level 4.2 mmol/L Chloride Level 107 mmol/L Carbon Dioxide Level 30 mmol/L Anion Gap 6.0 mmol/L Blood Urea Nitrogen 17 mg/dl Creatinine 1.00 mg/dl Est Creatinine Clear Calc Drug Dose 78.7 ml/min Estimated GFR () 71.4 Estimated GFR (Non- 61.6 BUN/Creatinine Ratio 17.3 Random Glucose 94 mg/dl Calcium Level 8.6 mg/dl Triglycerides Level 156 mg/dl Cholesterol Level 194 mg/dl HDL Cholesterol 58 mg/dl LDL Cholesterol, Calculated 105 mg/dl VLDL Cholesterol, Calculated 31 mg/dl Cholesterol/HDL Ratio 3.3 Assessment and Plan 57 y/o F who was admitted for observation for stroke like sx. Stroke like sx/pre-syncope: Uncertain etiology, CVA seems less likely at this point MRI suggests small vessel disease that is increased for age, ?? demyelinating disease like MS although MS less likely based on read ECHO with EF 60-65% and no major structural issues noted Lyme, TSH, folate WNL B12 deficiency noted and this could explain UE n/t and fatigue, but not several other sx LE US neg for DVT making PE less likely CBC, PRP WNL Trop neg x3 CT head neg for acute Lipid panel with elevated TG, A1c with minimal elevation Given odd consternation of sx, will look at CRP, ESR, other tick born illness , MAUREEN panel Neuro c/s noted, planning for MRA head/neck which cannot be done until 7p due to contrast given yesterday, also added 81mg aspirin Pt will need f/u MRI in 6 months B12 deficiency: could explain n/t, fatigue, decreased stamina but seems likely likely to account for other sx Replace QD x5, then Qweek x4 and recheck as outpt Elevated BP: pt states she was told this was the case in the ED 2 weeks ago as well, however BP has been WNL today Monitor No hx of HTN LE pain: LE US neg for DVT, + for 2 complex fluid collections, hematoma vs popliteal cyst No longer with pain Can f/u with ortho or sports med as outpt if this returns Elevated TG, A1c: discussed dietary changes Lipid panel otherwise WNL BS are WNL also with A1c with minimal elevation at 5.7 Pt has had increased sweets over last year since d/c smoking and did discuss this with pt Hx of cervical ca: will need to set up for outpt PAP Less likely, but cannot fully rule out that this is not some sort of cancerous process Other: Full code. Pt is very clear that she does not want prolonged mechanical life support or tube feedings. Daughter is present and agrees Ambulation for DVT proph Reg diet Pt will need assistance from CM to set up with a PCP. She will also need set up for a screening c-scope as outpt
[2017-07-02 18:59] VITALS: BP 119/73; PULSE 54; TEMP 37.1; O2SAT 98
[2017-07-02] MEDS ORDERED: GADAVIST IV PRN (20:15)
--- NOTE | 2017-07-02 20:20 | DIAGNOSTIC IMAGING REPORT ---
MR ANGIOGRAPHY OF THE [place] [facility] [place] [facility] [place] NO CONTRAST CLINICAL HISTORY: TIA DIZZINESS AND SLURRED SPEECH COMPARISON STUDY: MRI the brain dated 07/01/2017. A 3-D [id number] MR angiographic sequence of the [place] [facility] [place] was performed. Both the source and projection images were reviewed. There is no evidence of major intracranial branch occlusion. There is no evidence of intracranial stenosis. There are no lesions suspicious for aneurysm. The left vertebral is dominant. IMPRESSION: Unremarkable MR angiography of the [place] [facility] [place]. Electronically signed by: Ulisses Zhong M.D. 07/02/2017 8:19 PM Dictated Date/Time: 07/02/2017 8:12 PM
--- NOTE | 2017-07-02 20:22 | DIAGNOSTIC IMAGING REPORT ---
NECK MRA HISTORY: Dizziness, slurred speech. TIA TECHNIQUE: [id number] and gadolinium-enhanced MRA of the neck was performed both before and after the intravenous administration of contrast. All measurements were calculated based on NASCET criteria. 10 cc intravenous Gadavist was administered. COMPARISON STUDY: None. FINDINGS: The aortic arch and proximal great vessels are widely patent. There is no significant stenosis, occlusion, or dissection identified within the bilateral common carotid, internal carotid, or vertebral arteries. IMPRESSION: No significant stenosis, occlusion, or dissection identified within the carotid or vertebral arteries. Electronically signed by: Ulisses Zhong M.D. 07/02/2017 8:21 PM Dictated Date/Time: 07/02/2017 8:19 PM
--- NOTE | 2017-07-02 20:31 | DIAGNOSTIC IMAGING REPORT ---
ULTRASOUND OF THE CAROTID ARTERIES CLINICAL HISTORY: TIA COMPARISON STUDY: None. TECHNIQUE: Real-time, grayscale, and color Doppler sonography of the carotid arteries was performed. Imaging reviewed in the transverse and longitudinal planes. NASCET criteria was utilized for stenosis calcification. FINDINGS: There is minimal atherosclerotic plaque present . The peak systolic velocity within the right internal carotid artery is 64 cm/sec. The systolic velocity ratio of right internal to common carotid artery is 0.8. The peak systolic velocity within the left internal carotid artery is 63 cm/sec. The systolic velocity ratio left internal to common carotid artery is 0.7. Antegrade flow is seen in the vertebral arteries. The external carotid arteries are patent. Blood pressure in the right arm measured 123 mm/Hg. Blood pressure in the left arm measured 119 mm/Hg. IMPRESSION: No evidence of hemodynamically significant carotid stenosis. Electronically signed by: Ulisses Zhong M.D. 07/02/2017 8:30 PM Dictated Date/Time: 07/02/2017 8:29 PM
[2017-07-03 00:07] VITALS: BP 117/65; PULSE 66; TEMP 37.3; O2SAT 96
[2017-07-03 04:00] VITALS: BP 112/69; PULSE 63; TEMP 37.3; O2SAT 96
[2017-07-03 04:20] VITALS: O2SAT 96
[2017-07-03 05:54] LABS: BASO % 0.4 %; BASO ABS # 0.02 K/uL (0-0.2); COMPLETE YES; EOS % 4.7 %; HEMATOCRIT 39.7 % (37-47); LYMPH % 32.5 %; LYMPH ABS # 1.66 K/uL (1.2-3.4); MEAN CELL VOLUME 86.9 fL (80-100); MEAN CORPUSCULAR HEMOGLOBIN 28.2 pg (25-34); MEAN CORPUSCULAR HGB CONC 32.5 g/dl (32-36); MEAN PLATELET VOLUME 9.5 fL (7.4-10.4); MONO % 5.7 %; NEUT % 56.7 %; PLATELET COUNT 202 K/uL (130-400); RED BLOOD COUNT 4.57 M/uL (4.2-5.4)
[2017-07-03 06:29] LABS: BUN/CREATININE RATIO 21.1 (10-20); CALCIUM 8.7 mg/dl (8.5-10.1); CREATININE 0.84 mg/dl (0.60-1.20)
[2017-07-03 07:09] VITALS: BP 125/76; PULSE 63; TEMP 37; O2SAT 97
--- NOTE | 2017-07-03 07:25 | Medical Student: [facility] ---
Med Student Progress Note Date of Service Jul 03, 2017. Subjective Pt evaluation today including: conversation w/ patient, physical exam, lab review Voiding: no voiding problems Patient examined sitting at edge of bed this morning. She reports that she did not sleep well overnight but that overall she is feeling less tired today. Overnight, she got up to use the bathroom and noticed that her joint pain/aches had virtually disappeared. She posits that this may be due to the B12 injection that she received yesterday. Denies headache, dizziness, cp, sob, abdominal pain , n/v/d, numbness/tingling, calf pain. No other complaints at this time. Review of Systems Constitutional: No fever, No chills Eyes: No worsening of vision, No diplopia ENT: No sore throat, No trouble swallowing Respiratory: No cough, No shortness of breath Cardiac: No chest pain, No palpitations Abdomen: No pain, No nausea, No vomiting, No diarrhea Musculoskeletal: No joint pain, No muscle pain, No calf pain Female : No dysuria, No incontinence Neurologic: No weakness, No numbness/tingling Skin: No rash, No itch Objective Vital Signs Date Time Temp Pulse Resp B/P (MAP) Pulse Ox O2 Delivery O2 Flow Rate FiO2 07/03/17 04:20 96 Room Air 07/03/17 04:00 37.3 63 16 112/69 (83) 96 Room Air 07/03/17 00:07 37.3 66 17 117/65 (82) 96 Room Air 07/03/17 00:05 Room Air 07/02/17 21:00 Room Air 07/02/17 18:59 37.1 54 18 119/73 (88) 98 Room Air 07/02/17 16:00 Room Air 07/02/17 15:56 37.0 63 18 120/66 (84) 95 Room Air 07/02/17 12:00 Room Air 07/02/17 11:11 37.2 71 20 85/45 (58) 96 07/02/17 08:29 36.7 82 20 106/62 (77) 96 Room Air 07/02/17 08:00 Room Air Physical Exam General Appearance: no apparent distress, + obese Eyes: bilateral eyes normal inspection, bilateral eyes PERRL, bilateral eyes EOMI ENT: normal ENT inspection, pharynx normal Neck: supple, no adenopathy, no carotid bruits Respiratory/Chest: lungs clear, normal breath sounds, no respiratory distress, no accessory muscle use Cardiovascular: regular rate, rhythm, no gallop, no murmur Abdomen: normal bowel sounds, non tender Extremities: normal range of motion, non-tender, no calf tenderness Neurologic/Psychiatric: no motor/sensory deficits, alert, oriented x 3 Skin: normal color, warm/dry, no rash Laboratory Results Last 24 Hours Test 07/02/17 18:19 07/03/17 05:37 Erythrocyte Sedimentation Rate 34 mm/hr C-Reactive Protein < 0.29 mg/dl White Blood Count 5.10 K/uL Red Blood Count 4.57 M/uL Hemoglobin 12.9 g/dL Hematocrit 39.7 % Mean Corpuscular Volume 86.9 fL Mean Corpuscular Hemoglobin 28.2 pg Mean Corpuscular Hemoglobin Concent 32.5 g/dl Platelet Count 202 K/uL Mean Platelet Volume 9.5 fL Neutrophils (%) (Auto) 56.7 % Lymphocytes (%) (Auto) 32.5 % Monocytes (%) (Auto) 5.7 % Eosinophils (%) (Auto) 4.7 % Basophils (%) (Auto) 0.4 % Neutrophils # (Auto) 2.89 K/uL Lymphocytes # (Auto) 1.66 K/uL Monocytes # (Auto) 0.29 K/uL Eosinophils # (Auto) 0.24 K/uL Basophils # (Auto) 0.02 K/uL RDW Standard Deviation 42.7 fL RDW Coefficient of Variation 13.4 % Immature Granulocyte % (Auto) 0.0 % Immature Granulocyte # (Auto) 0.00 K/uL Sodium Level 141 mmol/L Potassium Level 4.0 mmol/L Chloride Level 108 mmol/L Carbon Dioxide Level 28 mmol/L Anion Gap 5.0 mmol/L Blood Urea Nitrogen 18 mg/dl Creatinine 0.84 mg/dl Est Creatinine Clear Calc Drug Dose 93.1 ml/min Estimated GFR () 88.2 Estimated GFR (Non- 76.1 BUN/Creatinine Ratio 21.1 Random Glucose 99 mg/dl Calcium Level 8.7 mg/dl Assessment and Plan Assessment and Plan: This is a 57yo female who was admitted for observation of stroke like symptoms. Workup has been generally unrevealing up to this point though the patient notes improvement in her joint and and muscle pain today after B12 injection. This does not, however, explain her visual symptoms. CVA is unlikely given negative head CT and brain MRI. TIA cannot be excluded. Infectious causes such as Lyme and other tick-borne diseases (anaplasmosis, babesiosis, erlichiosis) are possible despite negative Lyme titer to date as the patient has frequent tick exposures. TSH and folate wnl. Low B12 level was found and treated but is an unlikely cause of all her symptoms. Atypical presentation of polymyositis or polymyalgia rheumatica are possible. ESR 34 mildly elevated, CRP negative. 1. Stroke-like symptoms/pre-syncope -MRI brain shows possible small vessel disease and signs of demyelination but MS less likely based on read -CT head negative -RLE Doppler negative for DVT -Lyme, TSH, folate wnl -low B12 level was found and treated with B12 injection, plan moving forward is daily B12 injection x3days and then weekly injection [id number] -neurology consult completed with the following recommendations: MRA head, carotid US, ASA 81mg, repeat brain MRI in 6 months -lipid panel wnl, discussed lifestyle and diet modifications with the patient 2. RLE pain, improving -RLE Doppler negative for DVT but positive for 2 fluid collections: hematoma vs popliteal cyst -will continue to monitor 3. Diet -Regular diet 4. DVT prophylaxis -patient to ambulate as tolerated 5. Discharge planning -location: home -Date: 07/03/17 Discharge planning: home Reviewed: Pt Seen/Exam by Me History See my note for details. Assessment/Plan 57 y/o F who was admitted for observation for stroke like sx. Stroke like sx/pre-syncope: Uncertain etiology, CVA seems less likely at this point MRI suggests small vessel disease that is increased for age, ?? demyelinating disease like MS although MS less likely based on read ECHO with EF 60-65% and no major structural issues noted Lyme, TSH, folate WNL B12 deficiency noted and this could explain UE n/t and fatigue, but not several other sx LE US neg for DVT making PE less likely CBC, PRP WNL Trop neg x3 CT head neg for acute Lipid panel with elevated TG, A1c with minimal elevation Given odd consternation of sx, will look at CRP, ESR, other tick born illness , MAUREEN panel Neuro c/s noted, planning for MRA head/neck which cannot be done until 7p due to contrast given yesterday, also added 81mg aspirin Pt will need f/u MRI in 6 months B12 deficiency: could explain n/t, fatigue, decreased stamina but seems likely likely to account for other sx Replace QD x5, then Qweek x4 and recheck as outpt Elevated BP: pt states she was told this was the case in the ED 2 weeks ago as well, however BP has been WNL today Monitor No hx of HTN LE pain: LE US neg for DVT, + for 2 complex fluid collections, hematoma vs popliteal cyst No longer with pain Can f/u with ortho or sports med as outpt if this returns Elevated TG, A1c: discussed dietary changes Lipid panel otherwise WNL BS are WNL also with A1c with minimal elevation at 5.7 Pt has had increased sweets over last year since d/c smoking and did discuss this with pt Hx of cervical ca: will need to set up for outpt PAP Less likely, but cannot fully rule out that this is not some sort of cancerous process Other: Full code. Pt is very clear that she does not want prolonged mechanical life support or tube feedings. Daughter is present and agrees Ambulation for DVT proph Reg diet Pt will need assistance from CM to set up with a PCP. She will also need set up for a screening c-scope as outpt
[2017-07-03] MEDS: CYANOCOBALAMIN 1000 MCG/ML VIAL IM SCH (08:04)
[2017-07-03] MEDS ORDERED: CYNI1000 IM (10:05)
[2017-07-03] MEDS ORDERED: ASPEC81 PO (10:05)
--- NOTE | 2017-07-03 10:12 | Discharge Instructions ---
Discharge Instructions Date of Service Jul 03, 2017. Admission Reason for Admission: Pre-Syncope Discharge Discharge Diagnosis / Problem: B12 deficiency and possible early demyelination disorder Discharge Goals Goal(s): Decrease discomfort, Improve function, Increase independence Activity Recommendations Activity Limitations: resume your previous activity . Instructions / Follow-Up Instructions / Follow-Up You will need to have a B12 injection daily for the next 3 days. After that it will go to weekly for 4 weeks. After that time, you should have your B12 levels checked and your PCP will determine if you need further injections. A goal range is 800-900. If you no longer need injections, you should start taking B complex by mouth. I recommend a sublingual B complex. This is available over the counter at many stores such as [employer]. Other supplements you could consider would be [place] 3 fish oil. There are many good brands, but the one I recommend most is [employer]. You may also consider a probiotic. I generally recommend [employer] EPS, but if you choose another be sure it has multiple strains of both Lactobacillus and Bifidobacter. The book we discussed is called The [place] Protocol, by Dickson Valero MD. Current Hospital Diet Patient's current hospital diet: Regular Diet Discharge Diet Recommended Diet: Regular Diet Pending Studies Studies pending at discharge: yes List of pending studies: Tick born illness panel MAUREEN 12 panel Laboratory Results Hemoglobin A1c Test 07/01/17 11:10 Range/Units Estimated Average Glucose 117 mg/dl Hemoglobin A1c 5.7 H 4.5-5.6 % Lipid Panel Test 07/02/17 03:38 Range/Units Triglycerides Level 156 H 0-150 mg/dl Cholesterol Level 194 0-200 mg/dl HDL Cholesterol 58 mg/dl Cholesterol/HDL Ratio 3.3 LDL Cholesterol, Calculated 105 mg/dl Medical Emergencies . Who to Call and When: Medical Emergencies: If at any time you feel your situation is an emergency, please call 911 immediately. . Non-Emergent Contact Non-Emergency issues call your: Primary Care Provider . . "Provider Documentation" section prepared by Lindsey Beck. . VTE Core Measure Inpt VTE Proph given/why not?: SCD's
--- NOTE | 2017-07-03 10:29 | Discharge Summary ---
Discharge Summary Date of Service Jul 03, 2017. Discharge Summary Admission Date: Jul 01, 2017 at 13:46 Discharge Date: Jul 03, 2017 Discharge Disposition: Home Principal Diagnosis: B12 deficiency and possible early demyelating disease Problems/Secondary Diagnoses: Recent PNA, s/p course of abx prior Hx of cervical ca?? s/p thyroidectomy--R side only, ?? diagnosis Consultations: Neuro Medication Reconciliation New Medications: Aspirin (Aspirin EC Low Dose) 81 Mg Ectab 1 TAB PO DAILY for 30 Days, 1 Refill Cyanocobalamin (Cyanocobalamin) 1,000 Mcg/Ml Inj 1000 MCG IM UD, #7 1 injection IM daily x3 days, then 1 injection weekly x4 weeks Discharge Exam Pt is feeling much improved today. She woke up in the night to use the bathroom and as she was ambulating, she suddenly realized that she had no joint pain at all, which is the first this has been the case in months. Her vision is still a bit blurry, but much better. No headache. Pt denies fever, SOB, chest pain, abd pain, n/v/c/d, LE pain or swelling. Physical Exam: General Appearance: WD/WN, no apparent distress Respiratory/Chest: normal breath sounds, no respiratory distress Cardiovascular: regular rate, rhythm, no edema Abdomen / GI: non tender, soft Extremities: no calf tenderness, no pedal edema Neurologic/Psychiatric: alert, normal mood/affect, oriented x 3 Skin: normal color, warm/dry Hospital Course Per H&P: 57 y/o F who was brought to the ED by her family for concerns of stroke -like sx. Pt states she was dx with PNA in the ED at [facility] about 2 weeks ago. She was prescribed levaquin for 9 days, which she has completed. She states she has not really felt well since this dx though. Upon further reflection, she states that she has really not felt well since she moved her from [place] at the end of April. She states that in general she has had no stamina or energy. She has felt weak and fatigued, which she attributed to a change in work. 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 She has developed LE swelling R>L in the last 2 weeks and she has R sided calf pain since that time as well. She has also been having joint pain in many different joints. She has been having UE n/t for about the last year. Last night, pt noted that she could not read a magazine, even though she had on her non-prescription reading glasses, which is unusual for her. She went to bed. She was supposed to work this AM and when her alarm went off, she reached for her phone but could not hold onto it. Her vision was blurry and she felt very disoriented. She was lightheaded and almost passed out. She had a very difficult time walking and felt like her R LE could not support her. She states that she "staggered" to the door and on the way to the bathroom she was incontinent of urine. She states that her sx started to clear, so she continued to get ready for work, however her vision became blurry again and she was again disoriented. She called her daughter (who lives upstairs from pt) and they came to the ED. Upon arrival, pt was unable to communicate to ED staff. Daughter states that she was very confused and could not recall the date , year, where she works, etc. She asked questions that did not make sense and her speech was slurred. Daughter feels that this has mostly resolved. Pt states she no longer feels lightheaded or disoriented, but her vision is still somewhat blurry and she is having R LE pain and joint pain. "I just don't feel right.". Pt denies fever, SOB, chest pain, abd pain, n/v/c/d. While pt is not currently SOB, she does state that she has been having difficulty on occasion with the stairs to her daughters part of the house. Pt has been under a lot of stress lately. She just moved here from [place] to live with her daughter and has changed jobs. Prior to moving here, pt states that she was very active with hiking and fishing. "I was always outside. " Since she has moved here, she feels she just does not have the energy to do that type of activity any longer. She states she has pulled off "I can't tell you how many" ticks. She has gained weight. She quit smoking about 1 year ago and thought the weight gain was related to this since she has since developed a sweet tooth. Pt states she has not seen a doctor in many years "because I felt so good". 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 She also had cervical cancer and was initially recommended to have a hysterectomy, however she wanted to have children so this was managed with colposcopy with cryo and repeat PAPs Q3 months for over a year, then Q6 months, then yearly however she cannot tell me the last time she had one. Pt states she had not had a period in roughly 5 years. 57 y/o F who was admitted for observation for stroke like sx. Stroke like sx/pre-syncope: Uncertain etiology, however sx have resolved or improved s/p B12 injections and should finish a course of replacement as outlined below MRI suggests small vessel disease that is increased for age, ?? demyelinating disease like MS although MS less likely based on read MRA head/neck ECHO with EF 60-65% and no major structural issues noted Lyme, TSH, folate WNL LE US neg for DVT making PE less likely CBC, PRP WNL Trop neg x3 CT head neg for acute Lipid panel with elevated TG, A1c with minimal elevation at 5.7 ESR with mild elevation, CRP neg Given odd consternation of sx other tick born illness and MAUREEN panel pending on d/c Neuro c/s and added 81mg aspirin and recommended against CSF eval at this time Pt will need f/u MRI in 6 months B12 deficiency: could explain n/t, fatigue, decreased stamina but seems likely likely to account for other sx Replace QD x5 (3 remaining), then Qweek x4 and recheck as outpt If B12 levels are near 800-900, should switch to sublingual B complex Elevated BP: pt states she was told this was the case in the ED 2 weeks ago as well, however BP has been WNL during admission No prior hx of HTN LE pain: LE US neg for DVT, + for 2 complex fluid collections, hematoma vs popliteal cyst No longer with pain Can f/u with ortho or sports med as outpt if this returns Elevated TG, A1c: discussed dietary changes Lipid panel otherwise WNL BS are WNL also with A1c with minimal elevation at 5.7 Pt has had increased sweets over last year since d/c smoking and did discuss this with pt Hx of cervical ca: will need to set up for outpt PAP Pt had very aggressive PAP monitoring in the 70s s/p colposcopy for findings at that time, however cannot tell me the date of her last PAP as it has been so remote Should have a PAP MESHA No hx of screening colonoscopy, will need this also when able. Pt should also pursue optometry appt. Total Time Spent: Greater than 30 minutes This includes examination of the patient, discharge planning, medication reconciliation, and communication with other providers. Discharge Instructions Please refer to the electronic Patient Visit Report (Discharge Instructions) for additional information. Follow-Up Dr. Barrientos as scheduled prior to d/c Additional Copies To Celeste Barrientos,
[2017-07-03 10:55] VITALS: BP 125/76; PULSE 63; TEMP 37; O2SAT 97
[2017-07-07 04:58] LABS: ANTI-CENTROMERE AB <1.0 NEG AI (<1.0 NEG); ANTI-SS-A <1.0 NEG AI (<1.0 NEG); ANTI-SS-B <1.0 NEG AI (<1.0 NEG); DNA ds CRITHIDIA POSITIVE (NEGATIVE); MICROSOMAL AB 10 IU/ML (<9); Sm Antibody <1.0 NEG AI (<1.0 NEG)
[2017-07-09 11:51] LABS: DNA ds CRITHIDIA TITER 1:20 (<1:10)
== END 2017-07-03 12:30 | disposition home or self-care (01) ==
LOC: C.EDB 10:57 → C.2E 13:46 → EDBEDREQ 14:09 → ENRESERV 14:11
PROVIDERS: ADMIT Family Medicine; ATTEND Family Medicine
DX: E53.8 Deficiency of other specified B group vitamins (principal); R03.0 Elevated blood-pressure reading, without diagnosis of hypertension; M79.604 Pain in right leg; Z83.3 Family history of diabetes mellitus; Z83.79 Family history of other diseases of the digestive system; Z82.49 Family history of ischemic heart disease and other diseases of the circulatory system; Z83.6 Family history of other diseases of the respiratory system; Z82.0 Family history of epilepsy and other diseases of the nervous system; Z87.891 Personal history of nicotine dependence; Z85.41 Personal history of malignant neoplasm of cervix uteri

== ENCOUNTER → 2017-08-15 | Outpatient (CLI) | payer OTHER ==
[~2017-08-15] MED LIST changes: +ASPEC81 PO; +CYNI1000 IM; -LEVO1TAB35 PO
[2017-08-15 17:54] LABS: THYROID STIMULATING HORMONE 1.26 uIu/ml (0.300-4.500)
== END | disposition home or self-care (01) ==
LOC: C.LABPBG 12:23
PROVIDERS: ATTEND Family Medicine
DX: E53.8 Deficiency of other specified B group vitamins (principal); R76.8 Other specified abnormal immunological findings in serum